=== PATIENT | male | born 1985 | race Caucasian/White ===

== ENCOUNTER → 2020-02-18 | Outpatient (CLI) | payer MEDICARE ==
[~2020-02-18] MED LIST: ALFU10TA PO; ENOX40SY4 SQ; GABA600T PO; HYDR-3246 PO; IBUP-1223 PO; MELO15TA24 PO; MORP30TA81 PO; OXYC-307 PO; OXYC20TA42 PO; PREG150C PO; SENN1TAB67 PO
== END | disposition home or self-care (01) ==
LOC: STAR 11:33
PROVIDERS: ATTEND Orthopaedic Surgery Foot and Ankle Surgery
DX: Z20.828 Contact with and (suspected) exposure to other viral communicable diseases (principal); S82.842A Displaced bimalleolar fracture of left lower leg, initial encounter for closed fracture; X58.XXXA Exposure to other specified factors, initial encounter; Y93.89 Activity, other specified; Y92.89 Other specified places as the place of occurrence of the external cause; Y99.8 Other external cause status
CPT/HCPCS: 87635